=== PATIENT | female | born 1985 | race Caucasian/White ===

== ENCOUNTER 2024-05-12 12:29 | Inpatient (IN) | payer OTHER, SELFPAY ==
[2024-05-12] VITALS (12 sets, daily range): BP systolic 107–131; BP diastolic 59–84; PULSE 73–95; RESP 16; TEMP 36.6; BMI 45.5
--- NOTE | 2024-05-12 13:06 | LDADM ---
This patient, Cinthia Farley, was admitted to Labor/Delivery/Recovery 106 on 05/12/24 at 12:29. Plans for labor, pain management and were discussed with patient. Patient/family oriented to hospital policies and general routines including ID bracelet, bed and alarms, visiting hours, pain management, procedures, bathroom and other care routines, personal items, smoking policy, room service/diet and guest tray routines, infant security routines, and visiting hours. Patient/Family are encouraged to report perceived risks to care and to ask questions if they do not understand what they are told or what they should do. See OBIX for further documentation.
--- NOTE | 2024-05-12 13:45 | P.PNAN_ITS ---
Anes - Eval Pre Procedure Procedure: LABOR EPIDURAL Date/Time: 05/12/24 13:45 Surgeon: RIZWANA Preop Diagnosis: PAIN DURING LABOR Pre Op Diagnosis: IOL Patient Data Age: 38 Gender: F Height: 1.68 m Weight: 128 kg Last Vital Signs Pulse 92 05/12/24 12:49 BP 131/84 05/12/24 12:49 O2 Del Method Room Air 05/12/24 13:05 Allergies Allergy/AdvReac Type Severity Reaction Status Date / Time No Known Allergies Allergy Verified 04/26/24 13:30 Home Medications Medication Instructions Recorded Confirmed Type vits no.126-ferrous fum 1 tablet PO DAILY 04/26/24 05/12/24 History 28 mg iron-folic acid 800 mcg tablet (Classic ) Patient hx anesthesia problems: none Family hx anesthesia problems: none Results Review: All pre-operative results and documents have been reviewed as part of the pre- operative evaluation. PMFSH Past Medical History Medical History (Updated 05/12/24 @ 13:46 by Lita Duff CRNA) IUP (intrauterine ), incidental Morbid obesity resulting from in-vitro fertilization Family History Family History (Updated 04/26/24 @ 13:38 by Cinthia Harper RN) Other No pertinent family history Social History Social History Smoking status: Former smoker Tobacco type: e-cigarettes/vaping Smoking end date: 11/30/19 Substance use: never Do You Feel Safe in your Home?: Yes Lack of Transportation: No Lack of Food: Never True Current Housing: I Have Housing Concerned About Future Housing: No Difficulty Paying Gas/Electric Bills: No Difficulty Paying for Meds: No Currently Unemployed: No Education: Master's Degree or Higher Difficulty w/ Childcare or Family Care: No Spiritual care concerns: No Exam Day of Procedure 05/12/24 13:45
[2024-05-12] MEDS: DINOPROSTONE 10 MG VAG INSERT VAGINAL (14:08)
[2024-05-12 14:25] LABS: Basophils Percent Auto 0.2 % (0.2-1.2); Eosinophils Percent Auto 0.4 % (0-4.4); Hematocrit 34.9 % (37.0-47.0); Immature Granulocyte Absolute 0.03 K/mm3 (0.00-0.031); Immature Granulocyte Percent A 0.3 % (0-0.5); Lymphocytes Absolute Auto 1.53 K/mm3 (0.9-3.2); Lymphocytes Percent Auto 15.3 % (18.3-44.2); Mean Corpuscular HGB Conc 31.5 g/dl (32-36); Mean Corpuscular Hemoglobin 26.9 pg (26-34); Mean Corpuscular Volume 85.3 fl (80-100); Mean Platelet Volume 9.6 fl (7.4-10.4); Monocytes Absolute Auto 0.5 K/mm3 (0.1-0.6); Neutrophils Absolute Auto 7.9 K/mm3 (1.3-6.7); Neutrophils Percent Auto 78.8 % (45.5-73.1); Platelet Count Result 237 k/mm3 (150-375); Red Blood Count 4.09 M/mm3 (4.2-5.4); Red Cell Distribution Width 14.8 % (11.5-14.5)
[2024-05-12 16:12] LABS: HIV 1/2 Ab P24 Ag Result Negative (Negative)
[2024-05-13] VITALS (127 sets, daily range): BP systolic 92–130; BP diastolic 30–93; PULSE 39–144; RESP 16–18; TEMP 36.3–37.2; O2SAT 82–100
[2024-05-13] MEDS: LACTATED RINGERS 1,000 ML 125 ML IV CONT ×2 (03:22→08:04)
[2024-05-13] MEDS: OXYTOCIN 30 UNITS/NS 500 ML 30 UNITS/500 ML BAG IV CONT (03:23)
[2024-05-13] MEDS: ONDANSETRON INJ 4 MG/2 ML VIAL IV PUSH (08:04)
--- NOTE | 2024-05-13 08:47 | PM.IMHP ---
H&P: HPI History of Present Illness Date/Time: 05/13/24 08:47 Chief Complaint: Here for induction of labor. Narrative: 38 y/o at 39 3/7 weeks here for induction of labor. Cervidil last night, has been withdrawn. She is comfortable with epidural. Review of Systems Review of Systems: All systems reviewed & are unremarkable except as noted in HPI and below PMFSH Past Medical History Medical History IUP (intrauterine ), incidental Morbid obesity resulting from in-vitro fertilization Surgical History Surgical History History of laparoscopy Family History Family History Other No pertinent family history Social History Social History Smoking status: Former smoker Tobacco type: e-cigarettes/vaping Smoking end date: 11/30/19 Substance use: never Do You Feel Safe in your Home?: Yes Lack of Transportation: No Lack of Food: Never True Current Housing: I Have Housing Concerned About Future Housing: No Difficulty Paying Gas/Electric Bills: No Difficulty Paying for Meds: No Currently Unemployed: No Education: Master's Degree or Higher Difficulty w/ Childcare or Family Care: No Spiritual care concerns: No Meds Home Medications and Allergies Home Medications Medication Instructions Recorded Confirmed Type vits no.126-ferrous fum 1 tablet PO DAILY 04/26/24 05/12/24 History 28 mg iron-folic acid 800 mcg tablet (Classic ) Allergies Allergy/AdvReac Type Severity Reaction Status Date / Time No Known Allergies Allergy Verified 04/26/24 13:30 Vital Signs Vital Signs - 24 hr 05/12/24 12:49 05/12/24 14:08 05/12/24 14:31 Temperature 36.6 C Pulse Rate 92 73 Respiratory Rate 16 Blood Pressure 131/84 118/72 Pulse Oximetry Oxygen Delivery 05/12/24 15:01 05/12/24 15:31 05/12/24 16:01 Temperature Pulse Rate 82 79 73 Respiratory Rate Blood Pressure 118/68 116/76 116/69 Pulse Oximetry Oxygen Delivery 05/12/24 20:01 05/12/24 20:02 05/12/24 20:15 Temperature 36.6 C Pulse Rate 82 95 Respiratory Rate Blood Pressure 108/73 127/67 Pulse Oximetry Oxygen Delivery 05/12/24 20:30 05/12/24 20:45 05/12/24 21:00 Temperature Pulse Rate 88 90 81 Respiratory Rate Blood Pressure 107/67 110/62 119/59 L Pulse Oximetry Oxygen Delivery 05/13/24 00:11 05/13/24 00:15 05/13/24 00:31 Temperature Pulse Rate 81 91 90 Respiratory Rate Blood Pressure 116/77 129/87 118/69 Pulse Oximetry Oxygen Delivery 05/13/24 00:14 05/13/24 00:46 05/13/24 01:01 Temperature 36.4 C Pulse Rate 85 87 Respiratory Rate Blood Pressure 119/79 128/72 Pulse Oximetry Oxygen Delivery 05/13/24 01:16 05/13/24 01:32 05/13/24 01:46 Temperature Pulse Rate 85 136 H 76 Respiratory Rate Blood Pressure 125/80 92/56 L 99/53 L Pulse Oximetry Oxygen Delivery 05/13/24 02:02 05/13/24 02:44 05/13/24 02:49 Temperature 36.5 C Pulse Rate 73 Respiratory Rate Blood Pressure 96/49 L Pulse Oximetry 94 95 Oxygen Delivery 05/13/24 02:54 05/13/24 02:59 05/13/24 03:04 Temperature Pulse Rate Respiratory Rate Blood Pressure Pulse Oximetry 94 94 96 Oxygen Delivery 05/13/24 03:09 05/13/24 03:14 05/13/24 03:19 Temperature Pulse Rate Respiratory Rate Blood Pressure Pulse Oximetry 95 95 96 Oxygen Delivery 05/13/24 03:24 05/13/24 03:29 05/13/24 03:32 Temperature Pulse Rate 78 Respiratory Rate Blood Pressure 104/61 Pulse Oximetry 97 95 91 Oxygen Delivery 05/13/24 03:37 05/13/24 03:42 05/13/24 03:45 Temperature Pulse Rate 76 Respiratory Rate Blood Pressure 99
[2024-05-13] MEDS: SODIUM CHLORIDE 0.9% IV 300 ML 600 ML I-UTERINE (09:03)
[2024-05-13] MEDS: OXYTOCIN 10 UNITS/ML VIAL 20 UNITS (11:40)
[2024-05-13] MEDS: IBUPROFEN 600 MG TABLET PO ×2 (12:00→20:55)
[2024-05-13] MEDS: ACETAMINOPHEN 500 MG TABLET 1000 MG (12:00)
--- NOTE | 2024-05-13 12:02 | P.PCNOB_ITS ---
OB - Vaginal Delivery Note Procedure Delivery date: 05/13/24 Events: Elective Induction of Labor Induction method: Per Cervidil Protocol Delivery augmentation: Rupture of Membranes and Pitocin Delivery monitor: External FHT, External Uterine and Internal Uterine Route of delivery: Episiotomy description: None Laceration Description: None Specimen: Yes (cord blood) Quantitative Blood Loss (ml): 120 Anesthesia type: Epidural Disposition: PACU Complications: None Narrative: 38 y/o at 39 3/7 weeks gestation who presented to the hospital for induction of labor. Cervidil was placed overnight, then withdrawn the next morning. Oxytocin was administered intravenously. Amniotomy was performed with return of clear fluid. She received an epidural for pain control. Her labor p rogressed and her cervix dilated completely. She pushed with good effort and delivered the 's head to the perineum, followed by the body. The nose and mouth were bulb suctioned. After a delay, the cord was clamped and cut. The was handed off the field. Cord blood was collected. The placenta delivered spontaneously and was grossly normal in appearance. The usual 3 vessel cord was noted. There were no lacerations. The patient was taken to recovery room in stable condition. The infant went to the nursery in stable condition. I was present and scrubbed for the entire delivery. [facility] Baby Date of : 05/13/24 Time of : 11:33 Weeks of gestation at delivery: 39 Infant gender: Female presentation: vertex position: Right Occiput Posterior Placenta delivery description: Spontaneous and Normal Configuration Cord Vessel Description: 3 Vessels and Delayed Cord Clamping score one minute: 8 score five minutes: 9
--- NOTE | 2024-05-13 12:02 | PM.OBDSVD ---
DS: Admitting Diagnosis Discharge Date 05/14/24 Admitting Diagnosis IUP at 39 3/7 weeks DS: Discharge Diagnosis Discharge Diagnosis (1) (normal spontaneous vaginal delivery): Code(s): O80 - Encounter for full-term uncomplicated delivery Status: Acute OB - DS: Summary OB Procedures : None OB Procedures Intrapartum: Spontaneous Vag Delivery OB Procedures: : None Time Spent with Patient Time attestation: Total time spent providing and/or coordinating discharge services: DS: Data Data Completed and Pending Labs on day of discharge: Labs from last 24 hours 05/12/24 12:43 WBC 10.0 RBC 4.09 L Hgb 11.0 L Hct 34.9 L MCV 85.3 MCH 26.9 MCHC 31.5 L RDW 14.8 H Plt Count 237 MPV 9.6 Immature Gran % (Auto) 0.3 Neut % (Auto) 78.8 H Lymph % (Auto) 15.3 L [place] % (Auto) 5.0 Eos % (Auto) 0.4 Baso % (Auto) 0.2 Lymph # (Auto) 1.53 [place] # (Auto) 0.5 Eos # (Auto) 0.0 Baso # (Auto) 0.0 Abs Immat Gran (auto) 0.03 Absolute Neuts (auto) 7.9 H Absolute Nucleated RBC 0.000 Nucleated RBC % 0.0 RPR Pending HIV 1&2 Ab/P24 Ag 4thGn Negative Blood Type A Positive Antibody Screen Negative Discharge Plan Discharge Attending physician on discharge: Patrick Castellanos Consulting providers: John Frey; Lita Duff; Camilo Magdaleno Discharging Clinician: John Frey Patient Disposition: Home, Self-Care Activity: pelvic rest Diet: regular Discharge Instructions: Education: Mom and Baby Guide Given to: Mother Follow-Up: Call your delivering provider's office for an appointment to be seen in: 6 Weeks Mom and baby should come to the [facility] for the follow-up appointment. Appointment Date/Time: Thursday, May 16, 2024 at 9:00 am What to expect at your follow-up visit: Physical assessment Call [phone] if you are unable to keep your appointment time. BREAST CARE: * Wear a snug supportive bra. * For engorgement discomfort: Breast Feeding: * Apply warm moist washcloths * Express milk as needed to relieve engorgement * Wear loose clothing * For sore nipples: * Identify correct latch-on * Apply warm moist washcloths before and after nursing * Air dry nipples after nursing * May apply Lansinoh cream to nipples PERINEAL CARE: * Until bleeding stops, use your tiffanie bottle after urinating * Change your pad frequently throughout the day * You may take sitz baths several times a day (fill your bathtub with warm water and soak for 20 minutes.) Do NOT bathe in the water * No tub baths until seen by your physician - You may shower ACTIVITY: * Rest as much as possible. * Do not exercise or lift anything heavier than your baby (such as laundry or other children.) * Avoid stairs or driving as much as possible. * Do not put anything into the vagina. No douching, tampons, or sexual activity until seen by physician. NOTIFY PHYSICIAN IF YOU HAVE ANY QUESTIONS OR IF ANY OF THE FOLLOWING SYMPTOMS OCCUR: * If your episiotomy or incision becomes red, swollen, or more painful than what you have experienced in the hospital. * If your vaginal bleeding becomes foul smelling. * If your vaginal bleeding becomes more heavy than a period or if your bleeding changes from pink to bright red. However, you may pass an occasional walnut-sized clot once or twice for the first week . * If you experience a sharp, shooting pain in you calves. * If you discover a hard, reddened area on your breast or if you experience flu-like symptoms. DIET: * Eat regular, well-balanced meals. * Drink plenty of fluids daily. If , drink to thirst. Per Dr. Castellanos, Call or return if temperature above 100.4? F, increased abdominal pain, increased vaginal bleeding or any new problems. Follow-up/Referrals: Patrick Castellanos,
--- NOTE | 2024-05-13 14:07 | PC.NURSE ---
Patient transferred to post room #288 per wheelchair from labor and delivery. Support person present. Oriented to unit, room, information board, rooming in, admission packet and security measures. Patient verbalizes understanding.
[2024-05-13 17:01] LABS: Rapid Plasma Reagin Non-Reactive (NonReactive)
[2024-05-13] MEDS: ACETAMINOPHEN 325 MG TABLET 650 MG PO (20:55)
[2024-05-14 04:25] VITALS: BP 104/48; PULSE 79; RESP 16; TEMP 36.7; O2SAT 98
[2024-05-14 05:09] LABS: Hematocrit 32.9 % (37.0-47.0)
--- NOTE | 2024-05-14 05:33 | PM.OBPNVD ---
OB - PN: Subj Subjective Date/time seen: 05/14/24 05:33 Patient comments: no complaints and pain well controlled baby status: doing well OB - PN: Obj Data Labs 05/14/24 04:39 Labs: Laboratory Results - last 24 hr 05/12/24 05/14/24 12:43 04:39 Hgb 10.0 L Hct 32.9 L RPR Non-reactive OB - PN A/P Plan day: 1 Plan: routine care, discharge home and follow up 6 weeks Time Spent With Patient Time: Total time spent is greater than 50% in coordination of care (as documented) at patient's floor/unit and/or counseling patient: Time with patient: less than 15 minutes Exam Const: General: cooperative, healthy appearing and comfortable Nutritional Appearance: average body habitus Orientation/consciousness: oriented to person, oriented to place and oriented to time Resp: Effort & Inspection: normal respiratory effort Cardio: Rate: regular rate Rhythm: regular rhythm Heart sounds: S1 normal heart sound present and S2 normal heart sound present GI: Inspection: normal to inspection
--- NOTE | 2024-05-14 05:35 | PM.DS ---
DS: Admitting Diagnosis Discharge Date 05/14/2024 Admitting Diagnosis term DS: Discharge Diagnosis Discharge Diagnosis (1) Term : Code(s): Z34.90 - Encounter for supervision of normal , unspecified, unspecified trimester Status: Acute DS: Summary Hospital Course Hospital Course: patient was admitted for induction of labor and underwent spontaneous vaginal delivery on 05/13/2024. Her hospital course was unremarkable. She remained afebrile. She was up, voiding without difficulty, eating regular diet, and generally without complaints. Time Spent with Patient Time attestation: Total time spent providing and/or coordinating discharge services: Exam Const: General: cooperative, healthy appearing and comfortable Orientation/consciousness: oriented to person, oriented to place and oriented to time Resp: Effort & Inspection: normal respiratory effort Cardio: Rate: regular rate Rhythm: regular rhythm Heart sounds: S1 normal heart sound present and S2 normal heart sound present GI: Inspection: normal to inspection DS: Data Data Completed and Pending Labs on day of discharge: Labs from last 24 hours 05/14/24 05/12/24 04:39 12:43 Hgb 10.0 L Hct 32.9 L RPR Non-reactive Discharge Plan Discharge Attending physician on discharge: Patrick Castellanos Discharging Clinician: John Frey Patient Disposition: Home, Self-Care Activity: pelvic rest Diet: regular Discharge Instructions: Call or return if temperature above 100.4? F, increased abdominal pain, increased vaginal bleeding or any new problems. Stand Alone Forms: General Discharge Information Follow-up/Referrals: Patrick Castellanos MD [Physician] - 6 Weeks Discharge Medications: New ibuprofen 600 mg tablet 600 mg PO Q6H PRN (Reason: cramps) Qty: 30 0RF Continued Classic 28 mg iron- 800 mcg Tablet 1 tablet PO DAILY Date of admission: 05/12/24 12:29 Primary Care Provider: UNKNOWN,DOCTOR Admitting Provider: Patrick Castellanos Attending physician on admission: Patrick Castellanos Condition: Stable
[2024-05-14] MEDS: DOCUSATE SODIUM 100 MG CAPSULE PO (08:22)
[2024-05-14] MEDS: MULTIVIT/MIN/PREN/FOL AC/IRON TABLET 1 TAB PO (08:22)
[2024-05-14] MEDS: IBUPROFEN 600 MG TABLET PO ×2 (08:23→16:35)
[2024-05-14 10:09] VITALS: BP 115/71; PULSE 82; RESP 18; TEMP 36.1; O2SAT 99
--- NOTE | 2024-05-14 10:37 | WPDANLDPN2 ---
Anes-Prog Note L&D Date/Time: 05/14/24 10:37 Comfortable throughout: labor and delivery Neuraxial method: epidural Epidural/Spinal procedure site: clean & non-tender Neuro status: Neuro function grossly intact. Cardiovascular status: normal Respiratory status: normal Airway patency: baseline Mental status: baseline Post-Op hydration status: normal Vital Signs: Last Vital Signs Temp 36.1 C L 05/14/24 10:09 Pulse 82 05/14/24 10:09 Resp 18 05/14/24 10:09 BP 115/71 05/14/24 10:09 Pulse Ox 99 05/14/24 10:09 O2 Del Method Room Air 05/14/24 10:09 Pain score (VAS): 3/10 Post-procedural complaints: none Patient feedback: Patient satisfied with anesthetic care.
[2024-05-16 12:19] VITALS: BP 116/69; PULSE 80; RESP 18; TEMP 36.9; O2SAT 99
== END 2024-05-14 17:32 | disposition home or self-care (01) | DRG 807 ==
LOC: ANHLDR 05-13 12:32 → ANHOB2 05-13 15:04
PROVIDERS: Admitting Provider Obstetrics & Gynecology; Visit Provider Obstetrics & Gynecology
DX: O80 Encounter for full-term uncomplicated delivery (principal); Z37.0 Single live birth; Z3A.39 39 weeks gestation of pregnancy
CPT/HCPCS: 36415; 85014; 85018; 85025; 86592; 86703; 86850; 86900; 86901; A9270; G0432; J2405; J2590; J2795; J7030; J7120

== ENCOUNTER 2024-08-08 10:15 | Outpatient (CLI) | payer OTHER, SELFPAY ==
--- NOTE | 2024-08-08 10:20 | PC.NURSE ---
In- 1015 Out- 1110 Reason for visit: returning to work, low milk supply when pumping, flange measurements History: Cinthia has been exclusively baby Jean-Claude for 3 months. Baby has had appropriate weight gain and growth. 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 Mom wants to be fitted for correct flange size and wants to discuss ways to increase milk production. Observations: We thoroughly discussed mom's daily routine including waking and having the first of the day. Baby sleeps 6-8 hours a night and mom sometimes pumps once in the night. Mom has been pumping in the morning, sometimes before baby wakes. Mom goes to work and usually pumps 3 times while there. She admits that she really dislikes pumping and feels like it's stressful and takes her away from her job duties. Her boss seems supportive of her pumping needs. We discussed being sure she pumps to empty throughout the work day so that her breasts will increase milk production, and that more thorough breast emptying has been shown to be more effective at increasing milk production than just increasing the number of pumping sessions per day. We discussed that the body needs the correct hormonal response to release milk, and that sometimes the pump alone isn't enough. Educated mom about bringing something that smells like baby, using a picture or video to help stimulate her milk ejection reflex, and to focus on pumping and not trying to do work duties while pumping. Mom had never heard about trying this so she is open to trying the sensory triggers. Encouraged mom to allow baby to go directly to breast when they are together, and that baby's needs will still help regulate how much milk she produces (for growth spurts). Mom has a Medela pump and has been using the 24 mm flanges. She says her nipples are sore from pumping and she adjusts the suction to comfort. The left breast seems to produce less and she has a harder time expressing milk from that side. She says she still feels full after pumping and can hand express more milk after pumping 20 minutes. Her right nipple measures at 19mm so the 24 mm flange is appropriate on the right. Her left nipple measures larger at 22-24mm. She has some 27mm flanges and advised she try that on the left side to see if she gets better results. If the 27mm doesn't seem to help increase milk expression, recommended she try a 30mm flange. Encouraged mom to make pumping as positive and stress free as possible to encourage better results. We also discussed that this time around she has a toddler to care for in addition to baby, and that she didn't have to return to work after her first baby until he was 10 months old. We also talked about not comparing herself and her journey to influencers online who produce and sell excess milk. She needs enough milk to feed baby and she should be encouraged and proud of all that she does to support her growing . Mom was very positive and receptive throughout our visit. She breastfed baby while we spoke and baby seemed happy and healthy. Plan of Care: Advised mom not to go longer than four hours without or pumping. Encouraged mom to breastfeed first in the morning, and then wait 30 minutes to 1 hour before pumping until empty (until 2 minutes after milk flow stops or 30 minutes, whatever comes first). This will allow baby to work the breast most effectively first, and add in an extra feed with the pumping session. We discussed trying some heat and/or breast massage prior to pumping to encourage milk flow. She will try some of the sensory triggers to help the hormonal process of milk ejection (blanket, picture, video). Encouraged mom that she is doing an awesome job providing milk for her baby and that any breastmilk she can give is a benefit to mom and
== END 2024-08-08 10:16 | disposition home or self-care (01) ==
LOC: ANHOBOP 10:18
PROVIDERS: Visit Provider Pediatrics
DX: Z39.1 Encounter for care and examination of lactating mother (principal)
CPT/HCPCS: 99202; G0463

== ENCOUNTER 2025-01-02 08:45 | Outpatient (RCR) | payer OTHER, SELFPAY ==
--- NOTE | 2024-12-12 14:21 | OTOPEVAL1 ---
Assessment and note entered by Wolf Jhaveri, OTR/Jeff, CHT OT Evaluation Information 12/12/24 Diagnosis Postoperative state, carpal tunnel syndrome on right ICD-10 Condition Codes (OT) Pain in right hand M79.641 Subjective Information Patient is s/p right carpal tunnel release . She reports residual pain with gripping and lifting tasks as well as any pressure to the palm. She reports residual weakness as well. She is right handed. Plans to get the left released after the right is healed. She notes some residual paresthesia in the thumb. Reported Pain Level Pain Score 0: Self Report Additional Pain Score Comments No pain at rest. Tenderness with palpation to the carpal tunnel. Pain with pressure through the palm. Assessment OT Clinical Summary Patient referred to OT following right carpal tunnel release. She presents with residual scar site tenderness and gross weakness that limits her return to functional use for ADLs. Skilled OT indicated to maximize functional use of her right, dominant hand through therapeutic exercise, modalities, HEP instruction, and manual therapy. Plan of Care Interventions Therapeutic Exercise,Manual Therapy,Therapeutic Activities,Ultrasound,Paraffin OT Services Indicated Yes Treatment Frequency and 1x/week for 4 visits Duration These treatments will address the objective and functional deficits as defined above. The patient will be advanced safely and appropriately in order for the patient to progress towards his/her prior level of function. Additional exercises will be introduced and as well as a comprehensive home exercise program upon discharge, if needed, ?to ensure carryover of functional gains achieved in the clinic. This treatment plan has been reviewed and agreement upon by the patient.
--- NOTE | 2024-12-12 14:22 | OPREHPOC ---
Outpatient Therapy Plan of Care This is a Multidisciplinary Plan of Care that may contain components documented by all disciplines (PT, OT, and ST.) OT Problem 1 OT Problem #1 Knowledge Deficit OT Goal 1 Goal / Goal Update Patient to be independent with instructed materials. 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 Target Visit 4
--- NOTE | 2025-01-02 09:26 | OTOPDC ---
Assessment and note entered by Wolf Jhaveri, RICHARD/Jeff, CHT OT Discharge Summary 01/02/25 Assessment Status Discharge Diagnosis Postoperative state, carpal tunnel syndrome on right ICD-10 Condition Codes (OT) Pain in right hand M79.641 Subjective Information Patient reports progress with therapy, noting less pain and improved strength. She reports progress with being able to put more pressure through her palm, but continues to have pain with pushing herself out of the bath for instance. Strength is making progress as well, she notes she can now squeeze a mustard bottle. She reports her hand/arm doesn't get as tired as it used it. She notes some residual paresthesia in the thumb, which has not changed. ROM has returned to normal limits. 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 (R) lateral and palmar pinches are 5 lbs. [place] is normal. Reported Pain Level Pain Score 0: Self Report Additional Pain Score Comments No pain at rest. 2/10 at worst in the last week. Assessment OT Clinical Summary Patient referred to OT following right carpal tunnel release. She demonstrates improvements with reduced scar site tenderness, improved ROM, and improved strength. She is progressing with functional use of her hand and reports no limitations at this time. D/C OT with HEP. Plan of Care OT Services Indicated No
== END 2025-01-02 11:48 | disposition home or self-care (01) ==
LOC: ANHOT 08:45
DX: G56.01 Carpal tunnel syndrome, right upper limb (principal); Z98.890 Other specified postprocedural states
CPT/HCPCS: 97018; 97110; 97140; 97165

== ENCOUNTER 2025-07-17 15:11 | Emergency (ER) | payer OTHER, SELFPAY ==
--- NOTE | ~2025-07-17 | XR_ITS ---
EXAMINATION: XR foot LT min 3V DATE: 07/17/2025 16:09 INDICATION: Dropped table on foot TECHNIQUE: 4 images of the left foot were obtained. COMPARISON: None. FINDINGS: Soft tissue swelling about the left foot. No fracture. No dislocation. No significant degenerative ch benson. IMPRESSION: 1. No acute bony abnormality identified. 2. Soft tissue swelling about the left foot. If symptoms persist or worsen, consider a short-term follow-up study or additional imaging for furthe r assessment. Reviewed, dictated and finalized at location A. IMPRESSION: 1. No acute bony abnormality identified. 2. Soft tissue swelling about the left foot. If symptoms persist or worsen, consider a short-term follow-up study or additio nal imaging for further assessment.
[2025-07-17 15:18] VITALS: BP 119/77; PULSE 94; RESP 20; TEMP 36.8; O2SAT 100
--- NOTE | 2025-07-17 16:12 | ED.LOWEXIN ---
HPI - Extremity Injury (Lower) General Chief Complaint: Extremity Injury, Lower Stated Complaint: left foot injury Time Seen by Provider: 07/17/25 16:12 Source: patient Mode of arrival: ambulatory Limitations: no limitations History of Present Illness HPI Narrative: 31-year-old female presented for complaint of left foot pain, swelling and bruising. Onset yesterday after dropping a wrought iron table onto the foot. Has been able to walk but reports pain. Has taken Tylenol. Related Data Home Medications ?Medication ?Instructions ?Recorded ?Confirmed ?Last Taken ?Type bupropion HCl 150 mg 24 hr tablet, mg PO 07/17/25 Unknown History extended release tirzepatide (weight loss) 2.5 2.5 mg subcut WEEKLY 07/17/25 Unknown History mg/0.5 mL subcutaneous solution Allergies Allergy/AdvReac Type Severity Reaction Status Date / Time No Known Allergies Allergy Verified 07/17/25 15:27 Review of Systems Review of Systems: CONSTITUTIONAL: Denies body aches, fever, chills EYES: Denies visual changes ENT: Denies rhinorrhea, congestion CARDIOVASCULAR: Denies chest pain, palpitations, or edema. RESPIRATORY: Denies cough or dyspnea. SKIN: Denies rash, itching, or wounds. MUSCULOSKELETAL: reports left foot pain NEUROLOGIC: Denies headache, numbness, tingling, or weakness. All systems reviewed & are unremarkable except as noted in HPI and below PMFSH Past Medical History Medical History IUP (intrauterine ), incidental Morbid obesity resulting from in-vitro fertilization Surgical History Surgical History History of laparoscopy Family History Family History Other No pertinent family history Social History Social History Smoking status: Former smoker Tobacco type: e-cigarettes/vaping Smoking end date: 11/30/19 Substance use: never Do You Feel Safe in your Home?: Yes Lack of Transportation: No Lack of Food: Never True Current Housing: I Have Housing Concerned About Future Housing: No Difficulty Paying Gas/Electric Bills: No Difficulty Paying for Meds: No Currently Unemployed: No Education: Master's Degree or Higher Difficulty w/ Childcare or Family Care: No Spiritual care concerns: No Comments At time of signature, I have reviewed and agree with nursing past medical, surgical, social and family history unless otherwise noted. Please see nursing chart for further information. There is no relevant family history pertinent to the presenting complaint Exam Narrative: GENERAL: Well-appearing CHEST: Speaks in full sentences. No respiratory distress. HEART: Regular rate and rhythm. Normal and equal peripheral pulses. EXTREMITIES: left foot has normal strength and sensation, normal range of motion . Mild swelling and bruising And tenderness to the dorsal surface. No open wounds, or obvious deformity; alignment normal, pulse palpable and equal bilaterally, skin warm, dry, pink. Capillary refill less than 3 seconds. SKIN: Warm, dry NEURO: Alert and oriented x3. PSYCH: Normal mood and affect Course Course Emergency Course: Patient is aware of diagnosis, understands and agrees to treatment plan. Anticipatory guidance given. Patient agrees to follow-up as directed and is aware of reasons to seek care at the emergency department. Portions of this record may have been created with voice recognition software Level of Care: Express Care Visit Vital Signs Vital signs: Vital Signs Temperature 98.3 F 07/17/25 15:18 Pulse Rate 94 07/17/25 15:18 Respiratory Rate 20 07/17/25 15:18 Blood Pressure 119/77 07/17/25 15:18 Pulse Oximetry 100 07/17/25 15:18 Oxygen Delivery Room Air 07/17/25 15:18 Temperature 98.3 F 07/17/25 15:18 Pulse Rate 94 07/17/25 15:18 Respiratory Rate 20 07/17/25 15:18 Blood Pressure 119/77 07/17/25 15:18 Pulse Oximetry 100 07/17/25 15:18 Oxygen Delivery Room Air 07/17/25 15:18 Reviewed MDM - Extremity Injury (Lower) MDM Narrative Medical decision making narrative: Discussed physical exam findings and x-ray. Declined Surinder wrap.. Advised supportive measures and signs/symptoms to go to the ER. Pt is appropriate for outpt treatment and f/u. Differential Diagnosis Differential diagnosis: Likely other ( Foot fracture, foot contusion, toe fracture) Imaging Data Radiologist's impression: Patient: Cinthia Farley : 1985 MR#: [id number] Age: 39 Acct:[id number] Loc: [facility] ADM Date: 07/17/25Attending Dr: Ordering Physician: Yaritza Colbert APRN Date of Service: 07/17/25 Procedure(s): XR foot LT min 3V Accession Number(s): [id number] cc: Michael, Lisa Bills DO; Yaritza Colbert APRN~ EXAMINATION: XR foot LT min 3V DATE: 07/17/2025 16:09 INDICATION: Dropped table on foot TECHNIQUE: 4 images of the left foot were obtained. COMPARISON: None. FINDINGS: Soft tissue swelling about the left foot. No fracture. No dislocation. No significant degenerative change. IMPRESSION: 1. No acute bony abnormality identified. 2. Soft tissue swelling about the left foot. If symptoms persist or worsen, consider a short-term follow-up study or additional imaging for further assessment. Discharge Plan Discharge Clinical Impression: Contusion of foot, left Patient Disposition: Home Condition: Stable Instructions: Antibiotic Form, Foot Contusion (ED) Additional Instructions: Rest and elevate the left leg; bear weight as tolerated Apply ice 15-20 minute intervals several times a day Motrin 800mg every 8 hours, alternate with Tylenol 1000mg every 8 hours as needed Follow up with your primary care provider as needed go to the ER for worsening symptoms or concerns Patient Language: [place] Prescriptions: No Action bupropion HCl 150 mg tablet extended release 24 hr PO tirzepatide (weight loss) 2.5 mg/0.5 mL solution 2.5 mg subcut WEEKLY Follow-up/Referrals: Mamadou,Lisa Bills DO [Primary Care Provider] - Time of Disposition: 16:31
== END 2025-07-17 16:35 | disposition home or self-care (01) ==
PROVIDERS: Emergency Provider Nurse Practitioner Family; PCP Family Medicine
DX: S90.32XA Contusion of left foot, initial encounter (principal); W22.03XA Walked into furniture, initial encounter; Z87.891 Personal history of nicotine dependence
CPT/HCPCS: 73630; 99213; G0463